=== PATIENT | female | born 1995 | race Caucasian/White ===

== ENCOUNTER 2019-08-01 14:32 | Emergency (ER) | payer SELFPAY ==
[~2019-08-01] VITALS: Ht 162.6 cm; Wt 53.6 kg
[2019-08-01] MEDS ORDERED: ibuprofen tablet 400 MG TABLET PO ONE (15:00)
[2019-08-01] MEDS ORDERED: dicyclomine 10 MG capsule PO ONE (15:00)
[2019-08-01] MEDS ORDERED: acetaminophen 325mg tablet PO ONE (15:00)
[2019-08-01 15:05] LABS: CLARITY,URINE CLEAR (Clear); COLOR,URINE STRAW (Yellow); GLUCOSE, URINE NEGATIVE (Neg); KETONES,URINE NEGATIVE (Neg); LEUKOCYTE ESTERASE ,URINE NEGATIVE (Neg); NITRITES, URINE NEGATIVE (Neg); OCCULT BLOOD,URINE NEGATIVE (Neg); PH,URINE 5.5 (4.8-8.0); PROTEIN,URINE NEGATIVE (Neg); UROBILINOGEN,URINE 0.2 E.U/dL (0.2-1.0)
[2019-08-01 15:06] LABS: UA COLLECTION TYPE CLN CATCH MIDSTREAM
[2019-08-01 15:13] LABS: URINE HCG NEGATIVE (NEG)
[2019-08-01] MEDS ORDERED: mag hydrox/Alum hydrox/simeth 30ml oral suspension PO ONE (15:15)
[2019-08-01] MEDS ORDERED: famotidine 20mg tablet PO ONE (15:15)
[2019-08-01 15:23] LABS: BASOPHILS % (AUTO) 0.3 % (0-1); EOSINOPHILS # (AUTO) 0.1 X10'3 (0-0.9); HEMATOCRIT 40.6 % (35.0-45.0); LYMPHOCYTES # (AUTO) 1.6 X10'3 (1.1-4.8); LYMPHOCYTES % (AUTO) 23.2 % (21-51); MEAN CORPUSCULAR HEMOGLOBIN 30.8 PG (27.0-31.0); MEAN CORPUSCULAR HGB CONC 34.6 g/dL (33.0-36.5); MEAN CORPUSCULAR VOLUME 89.1 FL (78-98); MEAN PLATELET VOLUME 6.6 FL (7.4-10.4); MONOCYTES # (AUTO) 0.4 X10'3 (0-0.9); MONOCYTES % (AUTO) 5.5 % (2-12); NEUTROPHILS # (AUTO) 4.9 X10'3 (1.8-7.7); PLATELET COUNT 237 X10'3 (140-440); RED BLOOD COUNT 4.55 X10'6 (4.20-5.60)
[2019-08-01 15:28] LABS: ALANINE AMINOTRANSFERASE 52 U/L (12-78); ALBUMIN 3.6 G/DL (3.4-5.0); ALBUMIN/GLOBULIN RATIO 1.1 (1.1-1.5); ALKALINE PHOSPHATASE 65 IU/L (46-116); ANION GAP 5 (8-16); ASPARTATE AMINO TRANSFERASE 31 U/L (10-37); BILIRUBIN,TOTAL 0.2 MG/DL (0.1-1.0); BLOOD UREA NITROGEN 16 MG/DL (7-18); BUN/CREATININE RATIO 18.2 (6.6-38.0); CALCIUM 8.8 MG/DL (8.5-10.1); CHLORIDE 108 MMOL/L (99-107); CREATININE 0.88 MG/DL (0.40-0.90); GLUCOSE 100 MG/DL (70-104); LIPASE 94 U/L (73-393); POTASSIUM 3.8 MMOL/L (3.5-5.1); SODIUM 142 MMOL/L (135-145); TOTAL CARBON DIOXIDE 28.9 MMOL/L (24-32); TOTAL PROTEIN 6.9 G/DL (6.4-8.2); eGFR 78 ML/MIN
[2019-08-01] MEDS ORDERED: ONDA8TAB6 PO (16:08)
[2019-08-01] MEDS ORDERED: DICY10CA88 PO (16:08)
[2019-08-01] MEDS ORDERED: PANT-47 PO (16:08)
[2019-08-01] MEDS ORDERED: ondansetron 4mg rapidly disintigrating tab PO ONE (16:10)
[2019-08-01] MEDS ORDERED: pantoprazole 40mg Tablet.DR PO ONE (16:10)
[2019-08-01 16:19] VITALS: BP 132/68
== END 2019-08-01 16:24 | disposition home or self-care (01) ==
LOC: ER 14:33
DX: R10.30 Lower abdominal pain, unspecified (principal); K92.1 Melena; F10.99 Alcohol use, unspecified with unspecified alcohol-induced disorder; Z79.899 Other long term (current) drug therapy; Y90.9 Presence of alcohol in blood, level not specified
CPT/HCPCS: 36415; 80053; 81003; 81025; 83690; 85025; 85610; 99284